=== PATIENT | female | born 1985 | race Two or more races ===

== ENCOUNTER 2022-07-29 10:25 | Inpatient (IN) | payer MEDICAID ==
[~2022-07-29] VITALS: Ht 165.1 cm; Wt 103.9 kg
[2022-07-29] VITALS (7 sets, daily range): BP systolic 99–124; BP diastolic 54–68
[2022-07-29] MEDS ORDERED: PREN1TAB71 OR (11:01)
[2022-07-29] MEDS ORDERED: LACTATED RINGER'S 1,000 ML IV ONE (11:15)
[2022-07-29] MEDS ORDERED: ceFAZolin 1GM/50ML 50 ML IV ONE (11:15)
[2022-07-29] MEDS ORDERED: LACTATED RINGER'S 1,000 ML IV SCH (11:15)
[2022-07-29] MEDS ORDERED: ceFAZolin 2 GM/D5W100ml 100 ML IV ONE (11:30)
[2022-07-29 11:55] LABS: Basophils # (auto) 0 10 ^3/uL (0-0.2); Basophils % (auto) 0.3 % (0.0-2.0); Eosinophils # (auto) 0 10 ^3/uL (0-0.8); Eosinophils % (auto) 0.5 % (0.0-7.0); Hematocrit 41.2 % (36.0-46.0); Hemoglobin 13.9 g/dL (12.2-16.2); Lymphocytes # (auto) 1.6 10 ^3/uL (0.4-5.4); Mean Corpuscular Hemoglobin 31.7 pg (28.0-32.0); Mean Corpuscular Hgb Conc. 33.7 g/dL (32.0-36.0); Mean Corpuscular Volume 94.2 fL (80.0-100.0); Monocytes # (auto) 0.7 10 ^3/uL (0-1.3); Monocytes % (auto) 7.2 % (0.0-12.0); Neutrophils # (auto) 7.3 10 ^3/uL (1.6-8.6); Nucleated Red Blood Cells % 0.1 %; Red Blood Cells 4.37 10^6/uL (4.0-5.20); Red Cell Distribution Width 14.6 % (11.8-14.3); White Blood Cell 9.7 10^3/uL (4.4-10.8)
[2022-07-29 12:09] LABS: Albumin 2.7 g/dL (3.4-5.0); Calcium 8.4 mg/dL (8.5-10.1); Potassium 3.6 mmol/L (3.5-5.1)
[2022-07-29 12:12] LABS: BUN/Creatinine Ratio 17.4 (10.0-20.0); Bilirubin, Total 0.4 mg/dL (0.2-1.0); Total Protein 6.2 g/dL (6.4-8.2)
[2022-07-29 12:18] LABS: INR 0.9 (0.9-1.15); Partial Thromboplastin Time 28.6 sec (24.6-33.4)
[2022-07-29] MEDS ORDERED: TETRACAINE 1% INJ 2 ML VIAL IJ ONE (12:52)
[2022-07-29] MEDS ORDERED: SODIUM CHLORIDE LOCK 10 ML ONE (12:54)
[2022-07-29] MEDS ORDERED: MIDAZOLAM HCL 2MG/2ML 2ml VIAL (1mg/ml) ONE (12:54)
[2022-07-29] MEDS ORDERED: EPINEPHrine HCL 1 MG/1 ML AMP ONE (12:54)
[2022-07-29] MEDS ORDERED: ONDANSETRON HCL 4 MG/2 ML VIAL ONE (12:54)
[2022-07-29] MEDS ORDERED: MORPHINE SULF PF 5 MG/10 ML VIAL ONE (12:54)
[2022-07-29] MEDS ORDERED: fentaNYL CITRATE 100 MCG/2 ML VL ONE (12:54)
[2022-07-29] MEDS ORDERED: DexAMETHasone SOD PHOS 10MG/1ML VIAL INJ ONE (12:54)
[2022-07-29] MEDS ORDERED: oxyTOCIN 10 UNIT/ML 10ML VIAL ONE (12:54)
[2022-07-29] MEDS ORDERED: CARBOPROST TROMETHAMINE 250 MCG/1ML VIAL IM ONE (13:45)
[2022-07-29] MEDS ORDERED: GUM (CHEWING) 1 GUM CHEW CHEW ONE ×2 (14:00→14:15)
[2022-07-29] MEDS ORDERED: LACT. RINGERS/OXYTOCIN 20UNITS 1,000 ML IV ONE ×2 (14:00→14:15)
[2022-07-29] MEDS ORDERED: ceFAZolin 1GM/50ML 50 ML IV SCH ×2 (14:00→14:15)
[2022-07-29] MEDS ORDERED: ONDANSETRON HCL 4 MG/2 ML VIAL IV PRN ×2 (14:00→14:15)
[2022-07-29] MEDS ORDERED: DOCU-94 PO (14:11)
[2022-07-29] MEDS ORDERED: IBUP800T27 PO (14:11)
[2022-07-29] MEDS ORDERED: HYDR-4902 PO (14:11)
[2022-07-29] MEDS ORDERED: METOCLOPRAMIDE HCL 5MG/ml INJ 2ml VIAL IV PRN (14:45)
[2022-07-29] MEDS ORDERED: diphenhdrAMINE HCL 50 MG/1 ML VL IV PRN (14:45)
[2022-07-29] MEDS ORDERED: NALOXONE HCL 0.4 MG/ML VIAL IV PRN (14:45)
[2022-07-29] MEDS ORDERED: MORPHINE SULFATE INJ 2 MG/ml SYRG IV PRN (14:45)
[2022-07-29] MEDS ORDERED: HYDROmorphone HCL 2 MG/ML VL/or syr IV PRN ×2 (14:45)
[2022-07-29 15:19] LABS: Urine Bacteria FEW /hpf (None Seen); Urine Blood Negative /uL (Negative); Urine Mucus FEW (None Seen); Urine WBC 10 /hpf (0 - 5)
[2022-07-29 15:26] LABS: Alcohol, Urine < 3.0 mg/dL (0-10); Amphetamine Screen, Urine NEGATIVE (NEGATIVE); Barbiturate Scree,Urine NEGATIVE (NEGATIVE); Benzodiazephine Screen, Urine NEGATIVE (NEGATIVE); Cannabinoid Screen, Urine NEGATIVE (NEGATIVE); Cocaine Screen, Urine NEGATIVE (NEGATIVE); Opiate Scree,Urine NEGATIVE (NEGATIVE); Phencyclidine Screen, Urine NEGATIVE (NEGATIVE)
[2022-07-29] MEDS ORDERED: ACETAMINOPHEN IV 1000 MG/100ML (10MG/ML) IV PRN (20:00)
[2022-07-29] MEDS: ceFAZolin 1GM/50ML 50 ML IV SCH (21:05)
[2022-07-29 22:31] LABS: Basophils # (auto) 0 10 ^3/uL (0-0.2); Basophils % (auto) 0.2 % (0.0-2.0); Eosinophils # (auto) 0 10 ^3/uL (0-0.8); Hematocrit 40.2 % (36.0-46.0); Hemoglobin 13.5 g/dL (12.2-16.2); Lymphocytes # (auto) 0.9 10 ^3/uL (0.4-5.4); Lymphocytes % (auto) 5.2 % (10.0-50.0); Mean Corpuscular Hemoglobin 31.6 pg (28.0-32.0); Mean Corpuscular Hgb Conc. 33.6 g/dL (32.0-36.0); Mean Corpuscular Volume 94.2 fL (80.0-100.0); Monocytes # (auto) 0.2 10 ^3/uL (0-1.3); Monocytes % (auto) 1.4 % (0.0-12.0); Neutrophils % (auto) 93.2 % (37.0-80.0); Red Blood Cells 4.27 10^6/uL (4.0-5.20); Red Cell Distribution Width 14.3 % (11.8-14.3); White Blood Cell 17.2 10^3/uL (4.4-10.8)
[2022-07-30] VITALS (9 sets, daily range): BP systolic 95–112; BP diastolic 52–70
[2022-07-30] MEDS ORDERED: HYDROcodone-ACET 5/325MG TAB PO PRN (03:00)
[2022-07-30] MEDS ORDERED: ACETAMINOPHEN IV 1000 MG/100ML (10MG/ML) IV PRN (05:00)
[2022-07-30] MEDS: ceFAZolin 1GM/50ML 50 ML IV SCH ×2 (05:33→13:49)
[2022-07-30] MEDS: IBUPROFEN 800 MG TAB PO PRN ×2 (05:41→16:46)
[2022-07-30] MEDS: SIMETHICONE 80 MG CHEWABLE TABLET PO SCH ×4 (05:41→22:10)
[2022-07-30 07:01] LABS: Basophils # (auto) 0 10 ^3/uL (0-0.2); Basophils % (auto) 0.2 % (0.0-2.0); Eosinophils # (auto) 0 10 ^3/uL (0-0.8); Hematocrit 35.5 % (36.0-46.0); Hemoglobin 12.3 g/dL (12.2-16.2); Lymphocytes # (auto) 1.6 10 ^3/uL (0.4-5.4); Lymphocytes % (auto) 10.1 % (10.0-50.0); Mean Corpuscular Hemoglobin 32.3 pg (28.0-32.0); Mean Corpuscular Hgb Conc. 34.5 g/dL (32.0-36.0); Mean Corpuscular Volume 93.6 fL (80.0-100.0); Monocytes # (auto) 1.1 10 ^3/uL (0-1.3); Monocytes % (auto) 6.6 % (0.0-12.0); Neutrophils # (auto) 13.4 10 ^3/uL (1.6-8.6); Neutrophils % (auto) 83.1 % (37.0-80.0); Nucleated Red Blood Cells % 0.1 %; Red Cell Distribution Width 14.6 % (11.8-14.3); White Blood Cell 16.1 10^3/uL (4.4-10.8)
[2022-07-30 08:06] LABS: RPR Non Reactive (Non Reactive)
[2022-07-30] MEDS: DOCUSATE SOD 100 MG CAP PO SCH ×2 (10:10→22:10)
[2022-07-30] MEDS: DOCUSATE CALCIUM 240 MG CAP PO SCH (10:11)
[2022-07-30] MEDS: HYDROcodone-ACET 5/325MG TAB PO PRN ×2 (10:11→18:48)
[2022-07-31] MEDS ORDERED: PREN1TAB71 OR (00:14)
[2022-07-31 02:48] VITALS: BP 109/69
[2022-07-31] MEDS: SIMETHICONE 80 MG CHEWABLE TABLET PO SCH ×2 (06:00→12:25)
[2022-07-31 06:45] VITALS: BP 109/60
[2022-07-31] MEDS: IBUPROFEN 800 MG TAB PO PRN (07:06)
[2022-07-31] MEDS: DOCUSATE CALCIUM 240 MG CAP PO SCH (09:34)
[2022-07-31] MEDS: DOCUSATE SOD 100 MG CAP PO SCH (09:34)
[2022-07-31 11:30] VITALS: BP 97/57
[2022-07-31] MEDS ORDERED: TETANUS-DIPTH-ACEL PERTUSSIS 0.5ML SYR Tdap IM ONE (14:00)
[2022-07-31 15:00] VITALS: BP 110/61
[2022-07-31 15:38] VITALS: BP 110/61
== END 2022-07-31 15:38 | disposition home or self-care (01) | DRG 540 ==
LOC: LDRP 10:25 → OBSVTOIN 11:15 → LDRP 22:10
PROVIDERS: ADMIT Obstetrics & Gynecology; ATTEND Obstetrics & Gynecology
PROC: 10D00Z1 Extraction of Products of Conception, Low, Open Approach (ICD-10-PCS; principal; 2022-07-29 13:15)
DX: O48.0 Post-term pregnancy (principal); O41.03X0 Oligohydramnios, third trimester, not applicable or unspecified; O32.1XX0 Maternal care for breech presentation, not applicable or unspecified; Z37.0 Single live birth; Z3A.40 40 weeks gestation of pregnancy
CPT/HCPCS: 36415; 59025; 76818; 80053; 80307; 81001; 81002; 85025; 85610; 85730; 86592; 86850; 86900; 86901; 90715; 94760; 96360; 96361; 96365; 96366; G0378; J0131; J0171; J0690; J1100; J2250; J2405; J2590